=== PATIENT | female | born 1940 | race Caucasian/White ===

== ENCOUNTER 2020-08-15 18:02 | Emergency (ER) | payer OTHER ==
[~2020-08-15] VITALS: Ht 165.1 cm; Wt 58.1 kg
[~2020-08-15 18:02] MED LIST: ASPI-556 PO; CALC-877 PO; FISH1CAP49 PO; MULT-950 PO
[2020-08-15 18:04] VITALS: BP 115/63
[2020-08-15 18:56] LABS: BASOPHILS % (AUTO) 0.4 % (0.0-5.0); EOSINOPHILS % (AUTO) 0.2 % (0.0-8.0); HEMATOCRIT 36.8 % (36-48); LYMPHOCYTES % (AUTO) 33.1 % (21.0-51.0); MEAN CORPUSCULAR HEMOGLOBIN 33.3 pg (27.0-33.0); MEAN CORPUSCULAR HGB CONC 32.9 g/dL (32.0-36.0); MEAN CORPUSCULAR VOLUME 101.4 fL (79-99); MONOCYTES % (AUTO) 37.8 % (3.0-13.0); NEUTROPHILS % (AUTO) 28.3 % (40.0-77.0); PLATELET COUNT (AUTO) 241 K/uL (130-400); RED BLOOD CELL COUNT(AUTO) 3.63 MIL/uL (4.00-5.50); RED CELL DISTRIBUTION WIDTH 13.2 % (11.0-15.5); WHITE BLOOD COUNT (AUTO) 4.7 K/uL (4.8-10.8)
[2020-08-15 19:11] LABS: CREATININE 0.9 mg/dL (0.5-1.5); POTASSIUM 3.5 mmol/L (3.5-5.1)
[2020-08-15 19:15] LABS: ALBUMIN 3.8 g/dL (3.5-5.0); BILIRUBIN,TOTAL 1.8 mg/dL (0.2-1.0); TOTAL PROTEIN, SERUM 7.9 g/dL (6.0-8.3)
[2020-08-15 19:45] LABS: APPEARANCE,URINE Clear (CLEAR); BILIRUBIN,URINE Small (NEGATIVE); COLOR,URINE Dark Yellow (YELLOW); GLUCOSE, URINE (UA) Negative (NEGATIVE); KETONES,URINE 40 mg/dL (NEGATIVE); LEUKOCYTE ESTERASE ,URINE Trace (NEGATIVE); NITRATE,URINE Negative (NEGATIVE); OCCULT BLOOD,URINE Negative (NEGATIVE); PH,URINE 5.5 (5.0-8.0); PROTEIN,URINE POS 1+ mg/dL (NEGATIVE)
[2020-08-15] MEDS ORDERED: IOHEXOL-350 75 ML VIAL IV ONE (20:00)
[2020-08-15 20:10] LABS: BACTERIA,URINE Few /HPF (None Seen); MUCUS,URINE Few LPF (None Seen); RBC,URINE 0-1 /HPF (0-1); SQUAMOUS EPITHELIAL CELL,UR Rare /HPF (0-2)
[2020-08-15 20:18] LABS: CRP QUANTITATIVE 54.1 mg/L (0.00-9.0); MAGNESIUM 1.8 mg/dL (1.80-2.40)
[2020-08-15 20:59] VITALS: BP 125/49
[2020-08-15] MEDS ORDERED: 0.9%NACL 1000ML 500 ML IV ONE (21:30)
[2020-08-15] MEDS ORDERED: ZOSYN 3.375GM+NS 50ML 50 ML IV ONE (21:30)
[2020-08-15] MEDS ORDERED: 0.9%NACL 50ML IV ONE (21:30)
[2020-08-15] MEDS ORDERED: PIP/TAZ ZOSYN 3.375G 3.375 GM VIAL IVPB ONE (21:30)
[2020-08-15] MEDS ORDERED: TRAM50TA4 PO (21:31)
[2020-08-15] MEDS ORDERED: AMOX-427 PO (21:31)
[2020-08-15] MEDS ORDERED: 0.9%NACL 50ML 50 ML IV ONE (21:40)
[2020-08-15] MEDS ORDERED: 0.9% NACL 500ML IV.SOLN 500 ML IV ONE (21:40)
[2020-08-15 22:16] VITALS: BP 121/52
== END 2020-08-15 23:12 | disposition home or self-care (01) ==
LOC: EDH 18:02
DX: K57.92 Diverticulitis of intestine, part unspecified, without perforation or abscess without bleeding (principal); R50.9 Fever, unspecified; I10 Essential (primary) hypertension; G62.9 Polyneuropathy, unspecified; Z79.899 Other long term (current) drug therapy
CPT/HCPCS: 36415; 71045; 74177; 80053; 81001; 82150; 83690; 83735; 85025; 86140; 87040 ×2; 87088; 87635; 93005; 96374; 99285; C9803; J2543; J7040; Q9967

== ENCOUNTER 2020-12-22 09:47 | Emergency (ER) | payer MEDICARE ==
[~2020-12-22] VITALS: Ht 165.1 cm; Wt 58.1 kg
[~2020-12-22 09:47] MED LIST changes: +AMOX-427 PO; +TRAM50TA4 PO
[2020-12-22] MEDS ORDERED: FENTANYL CITRATE PF 50 MCG/1 ML 2ML VIAL IM SCH (11:30)
[2020-12-22] MEDS ORDERED: FENTANYL CITRATE PF 50 MCG/1 ML 2ML VIAL IVP SCH (12:00)
[2020-12-22] MEDS ORDERED: FENTANYL CITRATE PF 50 MCG/1 ML 2ML VIAL IVP ONE (16:00)
[2020-12-22 16:03] VITALS: BP 128/75
[2020-12-22] MEDS ORDERED: ACET1TAB25 PO (16:05)
[2020-12-22] MEDS ORDERED: DOCU-116 PO (16:05)
== END 2020-12-22 16:40 | disposition home or self-care (01) ==
LOC: EDH 09:47
DX: S92.242A Displaced fracture of medial cuneiform of left foot, initial encounter for closed fracture (principal); S92.212A Displaced fracture of cuboid bone of left foot, initial encounter for closed fracture; I10 Essential (primary) hypertension; Z88.5 Allergy status to narcotic agent; Z79.82 Long term (current) use of aspirin; Z88.8 Allergy status to other drugs, medicaments and biological substances; X58.XXXA Exposure to other specified factors, initial encounter; Y93.89 Activity, other specified; Y92.89 Other specified places as the place of occurrence of the external cause; Y99.8 Other external cause status
CPT/HCPCS: 29515; 73630; 73700; 96372; 96374; 97116; 97161; 97530; 99285; J3010 ×2

== ENCOUNTER → 2023-09-30 | Outpatient (CLI) | payer MEDICARE ==
[~2023-09-30] MED LIST changes: +ACET-2079 PO; +DOCU-116 PO
[2023-09-30 13:01] LABS: BASOPHILS # (AUTO) 0.03 K/uL (0.00-0.20); BASOPHILS % (AUTO) 0.8 % (0.0-5.0); EOSINOPHILS # (AUTO) 0.06 K/uL (0.00-0.70); EOSINOPHILS % (AUTO) 1.6 % (0.0-8.0); HEMATOCRIT 37.6 % (36-48); LYMPHOCYTES # (AUTO) 2.6 K/uL (1.0-4.8); LYMPHOCYTES % (AUTO) 68.3 % (21.0-51.0); MEAN CORPUSCULAR HEMOGLOBIN 32.5 pg (27.0-33.0); MEAN CORPUSCULAR HGB CONC 31.9 g/dL (32.0-36.0); MEAN CORPUSCULAR VOLUME 101.9 fL (79-99); MONOCYTES # (AUTO) 0.8 K/uL (0.1-1.0); MONOCYTES % (AUTO) 20.6 % (3.0-13.0); NEUTROPHILS # (AUTO) 0.3 K/uL (1.8-7.7); NEUTROPHILS % (AUTO) 8.7 % (40.0-77.0); PLATELET COUNT (AUTO) 305 K/uL (130-400); RED BLOOD CELL COUNT(AUTO) 3.69 MIL/uL (4.00-5.50); RED CELL DISTRIBUTION WIDTH 14.1 % (11.0-15.5); WHITE BLOOD COUNT (AUTO) 3.8 K/uL (4.8-10.8)
[2023-09-30 13:13] LABS: ALBUMIN 3.6 g/dL (3.5-5.0); BILIRUBIN,TOTAL 0.8 mg/dL (0.2-1.0); CREATININE 0.9 mg/dL (0.5-1.0); POTASSIUM 4.5 mmol/L (3.5-5.1); TOTAL PROTEIN, SERUM 7.3 g/dL (6.0-8.3)
== END | disposition home or self-care (01) ==
LOC: LAB 12:07
PROVIDERS: ATTEND Internal Medicine Gastroenterology
DX: R10.30 Lower abdominal pain, unspecified (principal)
CPT/HCPCS: 36415; 80053; 85025

== ENCOUNTER 2024-02-19 11:12 | Emergency (ER) | payer MEDICARE ==
[~2024-02-19] VITALS: Ht 165.1 cm; Wt 58.1 kg
[2024-02-19 12:20] LABS: BASOPHILS # (AUTO) 0.03 K/uL (0.00-0.20); BASOPHILS % (AUTO) 1.3 % (0.0-5.0); HEMATOCRIT 35.6 % (36-48); LYMPHOCYTES # (AUTO) 0.9 K/uL (1.0-4.8); LYMPHOCYTES % (AUTO) 38.9 % (21.0-51.0); MEAN CORPUSCULAR HEMOGLOBIN 32.8 pg (27.0-33.0); MEAN CORPUSCULAR HGB CONC 33.1 g/dL (32.0-36.0); MEAN CORPUSCULAR VOLUME 98.9 fL (79-99); MONOCYTES # (AUTO) 0.7 K/uL (0.1-1.0); MONOCYTES % (AUTO) 30.3 % (3.0-13.0); NEUTROPHILS # (AUTO) 0.7 K/uL (1.8-7.7); NEUTROPHILS % (AUTO) 29.5 % (40.0-77.0); PLATELET COUNT (AUTO) 229 K/uL (130-400); RED CELL DISTRIBUTION WIDTH 13.4 % (11.0-15.5); WHITE BLOOD COUNT (AUTO) 2.3 K/uL (4.8-10.8)
[2024-02-19 12:28] LABS: RAPID GROUP A STREP negative (NEGATIVE)
[2024-02-19 12:30] LABS: INR <= 0.93 (0.85-1.15); PROTHROMBIN TIME 10.5 SEC (9.6-11.6)
[2024-02-19 12:31] LABS: PARTIAL THROMBOPLASTIN TIME 29.3 SEC (26.3-35.5)
[2024-02-19 12:33] LABS: SARS-CoV-2, RNA, NAAT NEGATIVE SARS CoV-2 (NEGATIVE)
[2024-02-19 12:37] LABS: INFLUENZA TYPE A Negative For Type A (NEGATIVE); INFLUENZA TYPE B Negative For Type B (NEGATIVE)
--- NOTE | 2024-02-19 12:49 | NUR ---
transfered care to abhishek at this time
[2024-02-19 13:02] LABS: BASOPHILS % (MANUAL) 1 % (0-2); LYMPHOCYTES % (MANUAL) 5 % (22-44); MAN.DIFF COMMENT-IMPRESSION MANUAL DIFFERENTIAL; MONOCYTES % (MANUAL) 5 % (2-9); REACTIVE LYMPHOCYTES 1 % (0-0); SEGMENTED NEUTROPHILS % 88 % (40-70); TOTAL CELLS COUNTED 100
[2024-02-19 13:03] LABS: PLATELET MORPHOLOGY COMMENT ADEQUATE
[2024-02-19 13:46] LABS: APPEARANCE,URINE CLEAR (CLEAR); BILIRUBIN,URINE NEGATIVE (NEGATIVE); COLOR,URINE YELLOW (YELLOW); GLUCOSE, URINE (UA) NEGATIVE (NEGATIVE); KETONES,URINE 10 mg/dL (NEGATIVE); LEUKOCYTE ESTERASE ,URINE NEGATIVE Leu/uL (NEGATIVE); NITRATE,URINE NEGATIVE (NEGATIVE); OCCULT BLOOD,URINE NEGATIVE (NEGATIVE); PH,URINE 6.5 (5.0-8.0); PROTEIN,URINE 70 mg/dL (NEGATIVE); UROBILINOGEN,URINE 0.2 mg/dL (0.2-1.0)
[2024-02-19 13:48] LABS: ADD UA MICROSCOPIC YES
[2024-02-19 13:54] LABS: MUCUS,URINE RARE LPF (None Seen); OTHER CASTS, URINE 3 /LPF (None Seen); SQUAMOUS EPITHELIAL CELL,UR RARE /HPF (0-2); WBC,URINE 0-1 /HPF (0-1)
--- NOTE | 2024-02-19 14:23 | ERN ---
General Chief Complaint: Weakness Stated Complaint: FEVER, WEAKNESS Time Seen by MD: 11:16 Source: patient History of Present Illness Initial Comments Patient is a an 84-year-old female coming in to be evaluated for weakness. Per patient's he does have a history of sinusitis patient does not feel like states her sinus issues today. She also states he has not been eating well due to decreased appetite. She does not complaining of any focal tenderness or any other complaints Allergies: Coded Allergies: No Known Drug Allergies (Unverified Allergy, Unknown, 01/13/15) tramadol (Unverified Allergy, Unknown, 12/22/20) Home Meds Active Scripts Docusate Sodium (Colace) 100 Mg Capsule, 100 MG PO BID for 15 Days, #30 CAP Prov:ERNESTO CHAMORRO MD 12/22/20 Acetaminophen with Codeine (Acetaminophen-Cod #3 Tablet) 1 Each Tablet, 1-2 TAB PO Q4H PRN for fracture pain, #30 TAB 0 Refills Prov:ERNESTO CHAMORRO MD 12/22/20 Tramadol Hcl (Tramadol HCl) 50 Mg Tablet, 50 MG PO Q6HPRN PRN for PAIN, #15 TAB 0 Refills Prov:JEFFERSON TREVINO MD 08/15/20 Amoxicillin/Potassium Clav (Augmentin Xr 1,000-62.5 Tab) 1 Each Tab.er.12h, 1 EACH PO BIDMEALS for 10 Days, #20 TAB 0 Refills Prov:JEFFERSON TREVINO MD 08/15/20 Reported Medications Multivitamin (Multi-Day Vitamins) 1 Each Tablet, 1 EACH PO AM, TAB 01/13/15 Aspirin (Aspir 81) 81 Mg Tablet.dr, 81 MG PO PM, TAB 01/13/15 Peyton-3 Fatty Acids/Fish Oil (Fish Oil 1,000 mg Capsule) 1 Each Capsule, 1 EACH PO AM, CAP 01/13/15 Calcium Carbonate/Vitamin D3 (Calcium 500 + D Tablet) 1 Each Tablet, 1 EACH PO TID, TAB 01/13/15 Past Medical History Past Medical History: Hypertension, IBS Medical History Other: NEUROPATHY Past Surgical History: Tonsillectomy, Other Surgical History Other: LT KNEE SX, CATARACTS Family History Family History: Negative Social History Social History: Lives with family Female( History) History: Not Applicable ROS Dictation CONSTITUTIONAL: No chills, no fever,weakness, no diaphoresis, no malaise. HEAD/FACE: No signs of trauma. EENT: No eye pain, no blurred vision, no tearing, no double vision, no ear pain, no ear discharge, no nose pain, no nasal congestion, no throat pain, no throat swelling, no mouth pain. RESPIRATORY: No cough, no orthopnea, no SOB, no stridor, no wheezing. CARDIOVASCULAR: No chest pain, no edema, no palpitations, no syncope. GASTROINTESTINAL/ABDOMINAL: No abdominal pain, no constipation, no diarrhea, no nausea, no vomiting. GENITOURINARY: No abnormal discharge, no dysuria, no frequent urination, no hematuria. No complaints of pain in the genitals. MUSCULOSKELETAL: No back pain, no gout, no joint pain, no joint swelling, no muscle pain, no muscle stiffness, no neck pain. INTEGUMENTARY: No change in color, no change in hair/nails, no dryness, no lesion, no lumps, no rash. NEUROLOGICAL/PSYCH: No anxiety, not depressed, no emotional problem, no headache, no numbness, no pre-existing deficit, no history of seizures, no tremors, no weakness. HEMATOLOGIC/LYMPHATIC: Not anemic, no history of blood clots, no apparent bleeding, no bruising, glands not swollen. All Systems Negative, Except as Noted. Physical Exam Physical Exam Dictation VITAL SIGNS: Reviewed. GENERAL APPEARANCE: Alert, oriented x3, no acute distress, obese. HEAD AND FACE: Non-traumatic. EYES: PERRL, pink conjunctivas, eyelid no trauma, anterior chamber clear. EARS: Pinnas intact and no signs of trauma or erythema. Ear canals clear and no discharge. TMs no erythema. NOSE: No discharge, no bleeding. OROPHARYNX: Mouth normal, teeth no caries, tongue pink. Pharynx clear, no erythema. Tonsils no exudates, no abscesses noted. Mucous membrane moist. NECK: Supple, non-tender, no thyromegaly, no masses, no JVD, no bruits. BREAST: Deferred. CHEST: No tenderness, no crepitus, no paradoxical movement, no retractions. LUNGS: Clear, well-ventilated, symmetric, no rales, no wheezing, no rhonchi, no stridor, good breath sounds bilaterally. HEART: Regular rate, regular rhythm, no murmur, no gallops. VASCULAR: No peripheral edema. ABDOMEN: Soft, positive bowel sounds, nondistended, no guarding, nontender, no rebound, no masses no hepatomegaly, no splenomegaly, no Tesfaye's sign, no hernias. RECTAL: Deferred. GENITAL: Deferred. NEUROLOGICAL: Normal speech, gross motor function intact, gross sensory function intact. MUSCULOSKELETAL: Neck nontender, full range of motion, back nontender, full range of motion. EXTREMITIES: Nontender, full range of motion. SKIN: Color pink, dry, no turgor, no rash, no lacerations, no abrasions, no contusions. LYMPHATICS: Deferred. Results Laboratory and Microbiology Lab and Micro Result Laboratory Tests Test 02/19/24 12:04 02/19/24 12:09 02/19/24 13:15 White Blood Count 2.3 K/uL (4.8-10.8) L Red Blood Count 3.60 MIL/uL (4.00-5.50) L Hemoglobin 11.8 g/dL (12.0-16.0) L Hematocrit 35.6 % (36-48) L Mean Corpuscular Volume 98.9 fL (79-99) Mean Corpuscular Hemoglobin 32.8 pg (27.0-33.0) Mean Corpuscular Hemoglobin Concent 33.1 g/dL (32.0-36.0) Red Cell Distribution Width 13.4 % (11.0-15.5) Platelet Count 229 K/uL (130-400) Mean Platelet Volume 9.8 fL (7.5-10.5) Immature Granulocyte % (Auto) 0.0 % (0-1) Neutrophils (%) (Auto) 29.5 % (40.0-77.0) L Lymphocytes (%) (Auto) 38.9 % (21.0-51.0) Monocytes (%) (Auto) 30.3 % (3.0-13.0) H Eosinophils (%) (Auto) 0.0 % (0.0-8.0) Basophils (%) (Auto) 1.3 % (0.0-5.0) Neutrophils # (Auto) 0.7 K/uL (1.8-7.7) L Lymphocytes # (Auto) 0.9 K/uL (1.0-4.8) L Monocytes # (Auto) 0.7 K/uL (0.1-1.0) Eosinophils # (Auto) 0.00 K/uL (0.00-0.70) Basophils # (Auto) 0.03 K/uL (0.00-0.20) Absolute Immature Granulocyte (auto 0.00 K/uL (0-1) Segmented Neutrophils % 88 % (40-70) H Lymphocytes % (Manual) 5 % (22-44) L Monocytes % (Manual) 5 % (2-9) Basophils % (Manual) 1 % (0-2) Nucleated Red Blood Cells 0.0 % (0.0-0.19) Differential Comment MANUAL DIFFERENTIAL Reactive Lymphocytes 1 % (0-0) H White Cell Morphology Comment Platelet Morphology Comment ADEQUATE Red Blood Cell Morphology HYPOCHROM CELLS 1+ Prothrombin Time 10.5 SEC (9.6-11.6) Prothromb Time International Ratio <= 0.93 (0.85-1.15) Activated Partial Thromboplast Time 29.3 SEC (26.3-35.5) Sodium Level 139 mmol/L (136-145) Potassium Level 4.0 mmol/L (3.5-5.1) Chloride Level 102 mmol/L (101-111) Carbon Dioxide Level 30 mmol/L (21-32) Blood Urea Nitrogen 14 mg/dL (7-18) Creatinine 1.0 mg/dL (0.5-1.0) Glomerular Filtration Rate Calc 56 mL/min (>90) Random Glucose 137 mg/dL (70-105) H Lactic Acid Level 1.5 mmol/L (0.8-2.5) Total Calcium 9.0 mg/dL (8.5-10.1) Total Creatine Kinase 50 U/L (21-232) Troponin I High Sensitivity 20 ng/L (4-50) Influenza Type A Antigen Negative For Type A Influenza Type B Antigen Negative For Type B SARS-CoV-2, RNA, NAAT NEGATIVE SARS CoV-2 Group A Streptococcus Rapid negative (NEGATIVE) Urine Color YELLOW (YELLOW) Urine Appearance CLEAR (CLEAR) Urine pH 6.5 (5.0-8.0) Urine Specific [place] 1.018 (1.001-1.031) Urine Protein 70 mg/dL (NEGATIVE) H Urine Glucose (UA) NEGATIVE mg/dL (NEGATIVE) Urine Ketones 10 mg/dL (NEGATIVE) H Urine Occult Blood NEGATIVE (NEGATIVE) Urine Nitrate NEGATIVE (NEGATIVE) Urine Bilirubin NEGATIVE mg/dL (NEGATIVE) Urine Urobilinogen 0.2 mg/dL (0.2-1.0) Urine Leukocyte Esterase NEGATIVE Jorje/uL Urine RBC 2-5 /HPF (0-1) H Urine WBC 0-1 /HPF (0-1) Urine Squamous Epithelial Cells RARE /HPF (0-2) Urine Bacteria None /HPF (None Seen) Urine Hyaline Casts 11-25 /LPF (0-1 /LPF) H Urine Other Casts 3 /LPF (None Seen) Labs Reviewed?: Yes MDM MDM: Differential diagnosis: Chronic fatigue, weakness, dehydration Patient is a an 84-year-old female coming in to be evaluated for generalized body weakness. Patient states the symptoms have been ongoing for a couple of days. She also states that she does not feel hungry. Laboratory workup negative for acute findings. Patient will be hydrated with some IV fluids states he feels better. Patient will be discharged in stable condition I also advised her appropriate follow up with PCP in 1-2 days. ED Course Orders Procedure Category Date Status Time Cbc With Differential LAB 02/19/24 Complete 11:38 Basic Metabolic Panel LAB 02/19/24 Complete 11:38 Blood Cult SADIE 02/19/24 In Process 11:38 Urinalysis Profile LAB 02/19/24 Complete 11:38 Lactic Acid LAB 02/19/24 Complete 11:38 Covid Rna Naat LAB 02/19/24 Complete 11:38 Influenza Type A & B, LAB 02/19/24 Complete Rapid 11:38 Rapid (Group A Strep) LAB 02/19/24 Complete 11:38 Prothrombin Time With LAB 02/19/24 Complete INR 11:43 Partial LAB 02/19/24 Complete Thromboplastin Time 11:43 Culture Urine SADIE 02/19/24 In Process 11:43 Creatine Kinase, Total LAB 02/19/24 Complete 11:43 Troponin I High LAB 02/19/24 Complete Sensitivity 11:43 12 Lead Ekg Tracing- EKG 02/19/24 Logged Technical 11:43 Manual Differential LAB 02/19/24 Complete 12:04 Ns 500ml Bolus PHA 02/19/24 Verified 14:30 Vital Signs Date Time Temp Pulse Resp B/P (MAP) Pulse Ox O2 Delivery O2 Flow Rate FiO2 02/19/24 13:38 98.8 75 20 130/64 97 Room Air* 0 21 02/19/24 12:11 100.4 98 18 130/78 96 Room Air* 0 21 02/19/24 11:29 100.4 128 159/73 94 Room Air 0 DX & DISP Disposition: Discharge Departure Impression: Primary Impression: Chronic fatigue Additional Impression: Dehydration Condition: Stable Additional Instructions: FOLLOW-UP WITH PRIMARY CARE PROVIDER IN 1 TO 2 DAYS. TAKE MEDICATIONS DIRECTED HERE IN THE EMERGENCY ROOM. OKAY TO CONTINUE HOME MEDICATIONS UNLESS OTHERWISE DISCUSSED DURING YOUR VISIT IN THE EMERGENCY ROOM TODAY. RETURN TO YOUR NEAREST EMERGENCY ROOM IF SYMPTOMS WORSEN OR IF THERE IS NO IMPROVEMENT. CALL 911 IF YOU NEED IMMEDIATE ASSISTANCE. TAKE TYLENOL [id number] NEEDED AND IF NO CONTRAINDICATIONS ARE PRESENT. INCREASE ORAL HYDRATION. A W OUND CULTURE OR URINE CULTURE WAS ORDERED HERE IN THE EMERGENCY ROOM DEPARTMENT PLEASE FOLLOW-UP WITH PRIMARY CARE PROVIDER AND ADVISE THEM TO GET REPEAT PORTS FROM OUR FACILITY. IF YOU HAD ANY PAYAL WRAP/SPLINTS THAT WERE APPLIED HERE, PLEASE DO NOT REMOVE THEM UNTIL YOU SEE YOUR PRIMARY CARE OR SPECIALTY. Referrals: Referrals: LISA MARCANO MD (PCP) Time of Disposition: 14:22 ELENI BRADLEY MD Feb 19, 2024 14:23
[2024-02-19] MEDS: 0.9% NACL 500ML IV.SOLN 500 ML IV ONE (14:26)
[2024-02-19 14:29] VITALS: BP 127/62; PULSE 72; RESP 18; TEMP 98.9; O2SAT 96
--- NOTE | 2024-02-19 15:41 | EKG ---
[facility] Test Date: 2024-02-19 Test Time: 12:16:05 Pat Name: ARTHUR MONTANEZ Department: ED Room: Gender: F Release Of Information Specialist: [id number] : 1940 Requested By: ELENI BRADLEY Order Number: [id number] Reading MD: Vicente Mccann Measurements Intervals Given Rate: 97 P: 39 NJ: 136 QRS: -34 QRSD: 82 T: 42 QT: 357 QTc: 438 Interpretive Statements Sinus rhythm Atrial premature complexes Left axis deviation Compared to ECG 08/15/2020 20:01:15 Atrial premature complex(es) now present Left-axis deviation now present Electronically Signed On 02-20-2024 21:38:18 BEEF SPECIALIST by Vicente Mccann Please click the below link to view image of tracing.
== END 2024-02-19 15:04 | disposition home or self-care (01) ==
LOC: EDH 11:12
DX: R53.82 Chronic fatigue, unspecified (principal); E86.0 Dehydration; I10 Essential (primary) hypertension; I49.1 Atrial premature depolarization; K58.9 Irritable bowel syndrome, unspecified; Z20.822 Contact with and (suspected) exposure to COVID-19; Z79.01 Long term (current) use of anticoagulants; Z88.5 Allergy status to narcotic agent; Z90.89 Acquired absence of other organs
CPT/HCPCS: 36415; 80048; 81001; 82550; 83605; 84484; 85025; 85610; 85730; 87040; 87086; 87635; 87804; 87880; 93005; 99284

== ENCOUNTER → 2024-05-28 | Outpatient (CLI) | payer MEDICARE ==
--- NOTE | 2024-05-28 09:10 | HMCIMG ---
UPPER GI TRACT, WO KUB REASON: HEARTBURN. COMPARISON: None TECHNIQUE: Biphasic upper chest series was performed. FINDINGS: There is no obstruction to the antegrade passage of barium from mouth through jejunum. A normal esophageal stripping wave is seen. There is small hiatal hernia. There is gastroesophageal reflux into the level of mid thoracic esophagus. Stomach is moderately distended without ulceration or mass lesion. Duodenal bulb and duodenal sweep are unremarkable. IMPRESSION: Small hiatal hernia. Gastroesophageal reflux to the level of mid thoracic esophagus. No obstruction.
== END | disposition home or self-care (01) ==
LOC: RAH 07:45
PROVIDERS: ATTEND Internal Medicine
DX: K21.9 Gastro-esophageal reflux disease without esophagitis (principal); K44.9 Diaphragmatic hernia without obstruction or gangrene; K31.89 Other diseases of stomach and duodenum; R12 Heartburn
CPT/HCPCS: 74240